=== PATIENT | male | born 1970 | race Caucasian/White ===

== ENCOUNTER 2019-02-28 12:04 | Inpatient (IN) ==
--- NOTE | 2019-02-25 09:02 | Anesthesiology Consultation ---
Date of Service February 25, 2019 Assessment & Plan (1) Encounter for pre-operative examination: Chart Review Chart Review: Acceptable Risk for Surgery and Patient NOT seen in Pre Admission Testing History Surgery Operation Date: 02/28/19 13:30 Proposed Procedures p Laparoscopic Cholecystectomy, Possible Open or Cholangiogram - Devyn Scott MD Height/Weight Height: 5 ft 10 in Weight: 113.398 kg Allergies Allergy/AdvReac Type Severity Reaction Status Date / Time No Known Allergies Allergy Verified 02/25/19 08:35 Medications Home Medications Medication Instructions Recorded Confirmed Last Taken famotidine 20 mg PO QAM 02/25/19 02/25/19 02/25/19 levothyroxine 137 mcg PO QAM 02/25/19 02/25/19 02/25/19 Past Medical History Medical History GI problem upset stomach/bloating- ? IBS Hypothyroidism Obesity Past Family History Family History Other Family history of prostate cancer in father Past Surgical History Surgical History History of wisdom tooth extraction Social History Smoking Status: Never smoker Do You Dip or Chew Tobacco: Yes (1 CAN PER DAY / ADVISED NPO) Hx Alcohol Use: Yes Alcohol type: beer Alcohol Intake Frequency Comment: 6 A WEEK Hx Substance Use: No substance use type: does not use Testing Laboratory Results 02/24/19 WBC 9.81 H/H 14.7/46.8 PLATELETS 401 SODIUM 140 POTASSIUM 4.6 CHLORIDE 103 CO2 27 BUN 15 CREATININE 1.2 GLUCOSE 83 Electrocardiogram Date: 02/24/19 SR with first degree AVB at 82bpm.
[~2019-02-28 12:04] MED LIST: CLINDAMYCIN 600 MG/54 ML BAG IV SCH; LR 15ML/HR IV SCH
[2019-02-28] MEDS ORDERED: MIDAZOLAM HCL 1 MG/ML 2ML VIAL ONE (12:32)
[2019-02-28] MEDS ORDERED: fentaNYL citrate 100 MCG/2 ML VIAL ONE ×2 (12:32→14:35)
[2019-02-28] MEDS ORDERED: CLINDAMYCIN 600 MG in DEXTROSE 5% 50 ML IV ONE (13:07)
--- NOTE | 2019-02-28 13:07 | History & Physical Bridge Note ---
Date of Service February 28, 2019 History & Physical Bridge Note I have examined the patient, reviewed the History & Physical and in the interval since the performance of the History & Physical I have noted the following changes of clinical significance: no changes noted
[2019-02-28] MEDS ORDERED: ATROPINE SULFATE 0.1 MG/ML 10ML SYR IV PRN (13:13)
[2019-02-28] MEDS ORDERED: fentaNYL citrate 100 MCG/2 ML VIAL IV PRN (13:13)
[2019-02-28] MEDS ORDERED: ePHEDrine sulfate 50 MG/ML AMP IV PRN (13:13)
[2019-02-28] MEDS ORDERED: ONDANSETRON INJ 2 MG/ML 2 ML VIAL IV PRN (13:13)
[2019-02-28] MEDS ORDERED: BACITRACIN OINT 15 GM TUBE ONE (13:18)
[2019-02-28] MEDS ORDERED: BUPIVACAINE 0.5 % 5 MG/1 ML MPF 30ML VIAL ONE (13:19)
[2019-02-28] MEDS ORDERED: LIDOCAINE HCL 1% 20 ML VIAL ONE (13:19)
[2019-02-28] MEDS ORDERED: ONDANSETRON INJ 2 MG/ML 2 ML VIAL ONE (14:03)
[2019-02-28] MEDS ORDERED: LIDOCAINE HCL 2% 2 ML VIAL/AMP(20MG/ML) INFIL ONE (14:03)
[2019-02-28] MEDS ORDERED: KETOROLAC 30 MG/ML VIAL ONE (14:03)
[2019-02-28] MEDS ORDERED: NEOSTIGMINE METHYLSULFATE 5 MG/5 ML SYR ONE (14:03)
[2019-02-28] MEDS ORDERED: PROPOFOL IV EMULSION 10 MG/ML 20 ML VIAL IV ONE (14:03)
[2019-02-28] MEDS ORDERED: DEXAMETHASONE SOD INJ 4 MG/ML VIAL ONE (14:03)
[2019-02-28] MEDS ORDERED: ROCURONIUM BROMIDE 10 MG/ML 5 ML VIAL ONE ×3 (14:03→15:15)
[2019-02-28] MEDS ORDERED: LARYING-O-JET KIT (LTA) ONE (14:03)
[2019-02-28] MEDS ORDERED: GLYCOPYRROLATE 0.2 MG/ML VIAL ONE (14:03)
[2019-02-28] MEDS ORDERED: CIPROFLOXACIN 400 MG/200 ML BAG IV STA (15:03)
[2019-02-28] MEDS ORDERED: metroNIDAZOLE 500 MG/100 ML BAG IV STA (15:04)
[2019-02-28] MEDS ORDERED: CIPRO 0.3%/DEXAMETHASONE 0.1% OTIC SUSP 7.5ML ONE (15:16)
--- NOTE | 2019-02-28 16:01 | Post Operative Brief Note ---
Immediate Post Op Note v1 Date of Surgery February 28, 2019 Pre & Post Diagnosis Operation Date: 02/28/19 13:30 Pre-Op Diagnosis: Acute Cholecystitis Post-Op Diagnosis: Acute Cholecystitis, gangrene gallbladder with abscess I identified the patient and participated in the time-out.: Yes Procedure Operation Date: 02/28/19 13:30 Actual Procedures p Laparoscopic Subtotal Cholecystectomy(Not Applicable) - Devyn Scott MD Surgeon Devyn Scott MD Church Supervisor JEFFREY Mccray Estimated Blood Loss 50 Findings Consistent with Post-Op Diagnosis gangrene gallbladder with abscess and gallstones Fluids 1200ml Specimens gallbladder Drains Chan-Rodriguez Drain Anesthesia Type General Complications none Disposition Accompanied Patient To Recovery: Yes Disposition: Recovery Room Overlapping Procedure I was immediately available: during the entire case.
[2019-02-28] MEDS ORDERED: HYDROmorphone INJ 0.5 MG/0.5 ML SYR IV PRN (16:48)
[2019-02-28] MEDS ORDERED: OXYCODONE/ACETAMINOPHEN 5mg/325mg TAB PO PRN (16:48)
--- NOTE | 2019-02-28 17:24 | Operative Report ---
DATE OF OPERATION: 02/28/2019 PREOPERATIVE DIAGNOSES: Acute cholecystitis, cholelithiasis. POSTOPERATIVE DIAGNOSES: Acute cholecystitis, gangrenous gallbladder with abscess and cholelithiasis. OPERATION: Laparoscopic subtotal cholecystectomy. SURGEON: Devyn Scott MD. ANESTHESIA: General. TILTING SAW OPERATOR: JEFFREY Mccray. IV FLUIDS: 1200 mL. ESTIMATED BLOOD LOSS: About 50 mL. FINDINGS: Significant inflammation on the gangrenous gallbladder with abscess, with gallstone. COMPLICATIONS: None. INDICATIONS FOR THE PROCEDURE: This is a 48-year-old gentleman who required to do the laparoscopic cholecystectomy, possible open, possible cholangiogram for his acute cholecystitis, cholelithiasis. I did talk to the patient about the benefit and risk, alternate procedure. I indicated the risks may include but not limited such as bleeding, infection, injury to common bile duct, bile leak, may need ERCP. The patient understands and he signed informed consent and I answered all questions. DETAILS OF PROCEDURE: We brought the patient to the OR, put the patient in the supine position. The patient received SCD on bilateral legs to prevent DVT. Also, patient received 3 grams Ancef IV for prophylactic antibiotic. The patient received general anesthesia without difficulties. Abdomen was appropriately draped in routine sterile fashion. After time out, I injected the local anesthesia by using 1% lidocaine mixed with 0.5% Marcaine just above umbilicus. Then I made a small incision just above umbilicus, opened fascia and opened peritoneum under direct vision, put a Liborio trocar in, connected to CO2 to create pneumoperitoneum. Flow rate was 6 liter per minute. Pressure not more than 14 mmHg. Once we got a nice pneumoperitoneum, we put a camera in, looked around the abdomen, shows normal finding on the liver. However, the gallbladder showed significant inflammation gangrenous gallbladder. Then, we put another two 5 mm trocar on the right upper quadrant, one 12 trocar on the epigastric area. Once all trocars were in, we mobilized the gallbladder, because of the gallbladder had significant inflammation likely with gangrene, we used needle to decompress the gallbladder; however, there was some pus coming out and patient had abscess on the gallbladder. We did send wound culture. At this moment, I ordered 400 mg Cipro IV and 500 mg of Flagyl IV for another dose of antibiotic, so based on the significant inflammation it was difficult to found the cystic duct. At this moment, we decided to do the subtotal cholecystectomy. We used the top-down technique and take down gallbladder near the cystic duct and then we used the Endo-SHASTA staple 45 mm transection near the cystic duct and also we removed at least 5 large stones, each was 1.5 cm stone inside the gallbladder. Once we removed the gallstone and we cleared the cystic duct near the pouch of the gallbladder again, we used Endo-SHASTA stapler for transection on the gallbladder near the cystic duct. Rechecked, no active bleeding, no leak and then we removed gallbladder and gallstones through the catch bag. Then we reinserted Lbiorio trocar and connected the CO2 to create pneumoperitoneum, again looked around the liver bed. No active bleeding, no bile leak at this moment. Then, we put one 10 mm BENJAMIN drainage in through the 5 mm trocar. We used a 2-0 Vicryl to fix the BENJAMIN on the skin. Then we removed all trocar under direct vision. No active bleeding from the trocar sites. Pneumoperitoneum was released. I closed the umbilical incision, fascial layer by using 0 Vicryl [id number] x2, closed subcutaneous layer by using 2-0 Vicryl interrupted, closed skin by using 4-0 Vicryl continuous running, closed another epigastric 12 trocar site fascial layer using 0 Vicryl [id number] x2 subcutaneous layer by using 2-0 Vicryl interrupted, closed skin by using 4-0 Vicryl interrupted, closed another two 5 mm trocar site skin only by using 4-0 Vicryl. Then we put the dressing on. The patient tolerated the procedure well. All instrument, needle and sponge count were correct x2 at the end of the case. The patient transferred to recovery room in stable condition. After the procedure, I did talk to the patient's mom about the OR finding and procedure we did. I recommended to admit the patient in the hospital and control the infection. The patient's mom agree and the specimen sent to pathology. I attest to the content of the Intraoperative Record and any orders documented therein. Any exception s are noted below.
[2019-02-28] MEDS: LACTATED RINGER'S 1,000 ML IV SCH (17:57)
--- NOTE | 2019-02-28 17:59 | Anesthesiology Progress Note ---
Date of Service February 28, 2019 Anesthesia Post Procedure Vital Signs Vital Signs: Temp Pulse Pulse Resp BP BP Pulse Ox 02/28/19 17:40 36.3 C L 65 14 113/74 93 02/28/19 16:55 36.6 C 84 16 130/74 97 02/28/19 16:45 65 16 131/79 97 02/28/19 16:35 75 16 105/75 94 02/28/19 16:25 76 16 137/75 94 02/28/19 16:15 36.9 C 76 16 139/97 94 02/28/19 12:38 36.6 C 77 18 121/86 97 Transfer of Care Handoff Completed per policy Notes Mental Status: alert / awake / arousable and participated in evaluation Patient Amnestic to Procedure: Yes Nausea / Vomiting: adequately controlled Pain: adequately controlled Airway Patency, RR, SpO2: stable & adequate BP & HR: stable & adequate Hydration State: stable & adequate Anesthetic Complications: no major complications apparent and Pt Satisfied with anesthetic care
[2019-02-28] MEDS: metroNIDAZOLE 500 MG/100 ML BAG IV SCH (22:10)
[2019-03-01] MEDS: CIPROFLOXACIN 400 MG/200 ML BAG IV SCH ×2 (03:33→16:29)
[2019-03-01 05:44] LABS: Basophils # (auto) 0.01 K/uL (0-0.2); Basophils % (auto) 0.1 %; Eosinophils # (auto) 0.01 K/uL (0-0.5); Eosinophils % (auto) 0.1 %; Hematocrit (blood only) 36.8 % (42-52); Hemoglobin 12.2 g/dL (14.0-18.0); Immature Granulocytes # (auto) 0.05 K/uL (0.00-0.02); Immature Granulocytes % (auto) 0.3 %; Lymphocytes # (auto) 1.36 K/uL (1.2-3.4); Lymphocytes % (auto) 9.5 %; Mean Corpuscular Hemoglobin 28.8 pg (25-34); Mean Corpuscular Hgb Conc 33.2 g/dL (32-36); Mean Corpuscular Volume 86.8 fL (80-100); Mean Platelet Volume 9.9 fL (7.4-10.4); Monocytes % (auto) 4.2 %; Neutrophils # (auto) 12.29 K/uL (1.4-6.5); Neutrophils % (auto) 85.8 %; Platelet Count 347 K/uL (130-400); RDW Coefficient of Variation 13.6 % (11.5-14.5); RDW Standard Deviation 43.3 fL (36.4-46.3); Red Blood Count 4.24 M/uL (4.7-6.1); White Blood Count 14.32 K/uL (4.8-10.8)
[2019-03-01 06:14] LABS: Albumin Level 2.9 gm/dl (3.4-5.0); BUN Creatinine Ratio 17.4 (10-20); Calcium 8.8 mg/dl (8.5-10.1); Creatinine Clr Calc Pharmacy 97.4 ml/min; Est GFR (African American) 86.4; Est GFR (Non-African American) 74.6
[2019-03-01] MEDS: LACTATED RINGER'S 1,000 ML IV SCH ×2 (06:16→18:29)
[2019-03-01] MEDS: metroNIDAZOLE 500 MG/100 ML BAG IV SCH ×3 (06:16→22:38)
[2019-03-01 06:19] LABS: Albumin Globulin Ratio 0.6 (0.9-2); Bilirubin,Total 0.5 mg/dl (0.2-1); Globulin 4.7 gm/dl (2.5-4.0); Total Protein 7.6 gm/dl (6.4-8.2)
[2019-03-01] MEDS: LEVOTHYROXINE SODIUM 137 MCG TABLET PO SCH (06:21)
[2019-03-01] MEDS: FAMOTIDINE 20 MG TAB PO SCH (09:30)
--- NOTE | 2019-03-01 10:00 | Surgery Progress Note ---
Date of Service March 01, 2019 Assessment & Plan (1) Cholelithiasis: POD # 1 s/p laparoscopic subtotal cholecystectomy -vitals stable, afebrile - leukocytosis of 14K (likely postoperative) - minimal post op pain - no n/v, tolerated clear liquids - coby drain with bloody serosanguineous output, no bile, 70 cc since placement Plan: Continue pain management as needed advance to regular diet continue coby drain continue ambulation possible discharge this evening or tomorrow morning repeat cbc in morning Dr. Scott has seen patient, agrees with above Subjective feeling good minimal pain no n/v, tolerated clear liquids urinating without difficulty ambulating hallway no cp/sob/dizziness Physical Exam Constitutional: WD/WN, vitals as above no acute distress Gastrointestinal (Abdomen): Inspection/Auscultation: abdomen normal to inspection and + abdominal surgical drain present (bloody serosanguineous output); abdomen not distended Percussion/Palpation: abdomen soft; abdomen nontender, no guarding and abdomen not rigid Skin: no rashes, warm and dry Psychiatric: A+Ox3, euthymic affect Results & Data Vital Signs (Past 12 Hours) Vital Signs Temp Pulse Pulse Resp BP Pulse Ox 03/01/19 07:39 36.4 C L 18 96/61 L 91 03/01/19 03:25 36.7 C 60 18 97/58 L 92 02/28/19 23:25 36.4 C L 65 18 143/77 H 94 Laboratory Results 03/01/19 03/01/19 Range/Units 04:41 04:41 WBC 14.32 H (4.8-10.8) K/uL RBC 4.24 L (4.7-6.1) M/uL Hgb 12.2 L (14.0-18.0) g/dL Hct 36.8 L (42-52) % MCV 86.8 (80-100) fL MCH 28.8 (25-34) pg MCHC 33.2 (32-36) g/dL RDW Std Deviation 43.3 (36.4-46.3) fL RDW Coeff of Verna 13.6 (11.5-14.5) % Plt Count 347 (130-400) K/uL MPV 9.9 (7.4-10.4) fL Immature Gran % (Auto) 0.3 % Neut % (Auto) 85.8 % Lymph % (Auto) 9.5 % [place] % (Auto) 4.2 % Eos % (Auto) 0.1 % Baso % (Auto) 0.1 % Immature Gran # (Auto) 0.05 H (0.00-0.02) K/uL Neut # (Auto) 12.29 H (1.4-6.5) K/uL Lymph # (Auto) 1.36 (1.2-3.4) K/uL [place] # (Auto) 0.60 H (0.11-0.59) K/uL Eos # (Auto) 0.01 (0-0.5) K/uL Baso # (Auto) 0.01 (0-0.2) K/uL Sodium 134 L (136-145) mmol/L Potassium 4.0 (3.5-5.1) mmol/L Chloride 102 (98-107) mmol/L Carbon Dioxide 23 (21-32) mmol/L Anion Gap 9.0 (3-11) BUN 20 H (7-18) mg/dl Creatinine 1.14 (0.6-1.4) mg/dl Est Cr Clr Drug Dosing 97.4 ml/min Est GFR ( Amer) 86.4 Est GFR (Non-Af Amer) 74.6 BUN/Creatinine Ratio 17.4 (10-20) Glucose 130 H (70-99) mg/dl Calcium 8.8 (8.5-10.1) mg/dl Total Bilirubin 0.5 (0.2-1) mg/dl AST 15 (15-37) U/L ALT 20 (12-78) U/L Alkaline Phosphatase 59 (45-117) U/L Total Protein 7.6 (6.4-8.2) gm/dl Albumin 2.9 L (3.4-5.0) gm/dl Globulin 4.7 H (2.5-4.0) gm/dl Albumin/Globulin Ratio 0.6 L (0.9-2)
--- NOTE | 2019-03-01 10:03 | Anesthesiology Progress Note ---
Date of Service March 01, 2019 Anesthesia Post Procedure Vital Signs Vital Signs: Temp Pulse Pulse Resp BP BP Pulse Ox 03/01/19 07:39 36.4 C L 18 96/61 L 91 03/01/19 03:25 36.7 C 60 18 97/58 L 92 02/28/19 23:25 36.4 C L 65 18 143/77 H 94 02/28/19 20:10 36.3 C L 73 14 121/77 94 02/28/19 19:09 36.4 C L 74 14 120/80 93 02/28/19 18:10 36.6 C 71 16 123/76 92 02/28/19 17:40 36.3 C L 65 14 113/74 93 02/28/19 16:55 36.6 C 84 16 130/74 97 02/28/19 16:45 65 16 131/79 97 02/28/19 16:35 75 16 105/75 94 02/28/19 16:25 76 16 137/75 94 02/28/19 16:15 36.9 C 76 16 139/97 94 02/28/19 12:38 36.6 C 77 18 121/86 97 Notes Mental Status: alert / awake / arousable and participated in evaluation Nausea / Vomiting: adequately controlled Pain: adequately controlled Airway Patency, RR, SpO2: stable & adequate BP & HR: stable & adequate Hydration State: stable & adequate Anesthetic Complications: no major complications apparent
[2019-03-02] MEDS: CIPROFLOXACIN 400 MG/200 ML BAG IV SCH (03:14)
[2019-03-02 05:13] LABS: Basophils # (auto) 0.03 K/uL (0-0.2); Basophils % (auto) 0.2 %; Eosinophils # (auto) 0.16 K/uL (0-0.5); Eosinophils % (auto) 1.2 %; Hematocrit (blood only) 38.9 % (42-52); Hemoglobin 12.7 g/dL (14.0-18.0); Immature Granulocytes # (auto) 0.03 K/uL (0.00-0.02); Immature Granulocytes % (auto) 0.2 %; Lymphocytes % (auto) 20.8 %; Mean Corpuscular Hemoglobin 28.7 pg (25-34); Mean Corpuscular Hgb Conc 32.6 g/dL (32-36); Mean Platelet Volume 9.6 fL (7.4-10.4); Monocytes # (auto) 1.15 K/uL (0.11-0.59); Monocytes % (auto) 8.6 %; Neutrophils # (auto) 9.28 K/uL (1.4-6.5); Platelet Count 332 K/uL (130-400); RDW Coefficient of Variation 13.9 % (11.5-14.5); Red Blood Count 4.42 M/uL (4.7-6.1); White Blood Count 13.45 K/uL (4.8-10.8)
[2019-03-02] MEDS: metroNIDAZOLE 500 MG/100 ML BAG IV SCH (05:37)
[2019-03-02] MEDS: LEVOTHYROXINE SODIUM 137 MCG TABLET PO SCH (05:48)
[2019-03-02] MEDS: FAMOTIDINE 20 MG TAB PO SCH (07:39)
--- NOTE | 2019-03-02 09:35 | Surgery Progress Note ---
Date of Service March 02, 2019 Assessment & Plan (1) Cholelithiasis: POD # 2 s/p laparoscopic subtotal cholecystectomy -vitals stable, afebrile - leukocytosis of 13k (likely postoperative) - no post op pain - no n/v, tolerated regular diet - coby drain with serosanguineous output, no bile Plan: Discharge home Discharge instructions reviewed coby drain teaching, going home with coby drain Rx for Percocet prn pain, Cipro/flagyl for 5 days f/u surgical office in 1 week f/u pcp office in [address] Scott who agrees with above. Subjective feeling good tolerated regular diet, no n/v no abdominal pain walking hallways ready to go home Physical Exam Constitutional: WD/WN, vitals as above no acute distress Gastrointestinal (Abdomen): Inspection/Auscultation: abdomen normal to inspection and + abdominal surgical drain present (serosanguineous ); abdomen not distended Percussion/Palpation: abdomen soft; abdomen nontender, no guarding and abdomen not rigid Skin: no rashes, warm and dry + incision (covered with dressings, spotting present but dry) Psychiatric: A+Ox3, euthymic affect Results & Data Vital Signs (Past 12 Hours) Vital Signs Temp Pulse Pulse Pulse Resp BP BP 03/02/19 09:23 36.7 C 60 73 77 16 121/77 120/76 03/02/19 07:36 36.7 C 77 16 120/76 03/01/19 22:59 36.7 C 65 16 126/76 Pulse Ox 03/02/19 09:23 95 03/02/19 07:36 95 03/01/19 22:59 94 Laboratory Results 03/02/19 Range/Units 04:50 WBC 13.45 H (4.8-10.8) K/uL RBC 4.42 L (4.7-6.1) M/uL Hgb 12.7 L (14.0-18.0) g/dL Hct 38.9 L (42-52) % MCV 88.0 (80-100) fL MCH 28.7 (25-34) pg MCHC 32.6 (32-36) g/dL RDW Std Deviation 45.0 (36.4-46.3) fL RDW Coeff of Verna 13.9 (11.5-14.5) % Plt Count 332 (130-400) K/uL MPV 9.6 (7.4-10.4) fL Immature Gran % (Auto) 0.2 % Neut % (Auto) 69.0 % Lymph % (Auto) 20.8 % [place] % (Auto) 8.6 % Eos % (Auto) 1.2 % Baso % (Auto) 0.2 % Immature Gran # (Auto) 0.03 H (0.00-0.02) K/uL Neut # (Auto) 9.28 H (1.4-6.5) K/uL Lymph # (Auto) 2.80 (1.2-3.4) K/uL [place] # (Auto) 1.15 H (0.11-0.59) K/uL Eos # (Auto) 0.16 (0-0.5) K/uL Baso # (Auto) 0.03 (0-0.2) K/uL
--- NOTE | 2019-03-04 14:31 | Discharge Summary ---
ADMITTING DIAGNOSIS: Acute cholecystitis with cholelithiasis. DISCHARGE DIAGNOSIS: Gallbladder cancer. OPERATION: Laparoscopic subtotal cholecystectomy. SURGEON: Devyn Scott MD DETAILS OF DISCHARGE SUMMARY: This is a 48-year-old gentleman who was admitted to the hospital for acute cholecystitis, right upper quadrant pain with gallstone and we took the patient to the OR. We did a laparoscopic subtotal cholecystectomy due to the significant inflammation with abscess. The gallbladder was significantly thickened and we put one BENJAMIN drainage. The patient tolerated the procedure well and after procedure the patient transferred to recovery room in stable condition and later on transferred to regular floor. The patient is doing fine. He tolerated the diet. No nausea, no vomiting, no temperature and no significant abdominal pain. PHYSICAL EXAMINATION: VITAL SIGNS: Temperature is 36.7, respiratory rate 16, blood pressure is 121/77, heart rate 77, O2 saturation 95% on room air. GENERAL: The patient is alert, awake, oriented x3. HEENT: Within normal limitation. NEUROLOGIC: Intact. NECK: No JVD. CHEST: Bilateral lung sounds clear. HEART: Normal S1, S2. No murmurs. ABDOMEN: Soft, nondistended and there is one BENJAMIN drainage minimal, about 30-50 cc per daily and all incisions intact. No redness, no drainage, no significant abdominal pain. Bowel sounds positive. EXTREMITIES: No edema. PLAN: On 03/02/2019 the patient wanted to go home. We discharged the patient home. Also, we gave the patient postop care instruction; however, on next day pathology called me report the patient had gallbladder cancer. I called the patient's right away to advise the patient to come back to my office next week, Thursday, about 4 days away. The patient understands. We gave the patient instructions how to take care of BENJAMIN drainage. The patient understands.
--- NOTE | 2019-03-04 14:45 | Discharge Summary ---
Date of Service March 04, 2019 Admission HPI Per Admitting Provider Donal presented to [facility] for outpatient elective cholecystectomy by Dr. Can for chronic right upper quadrant abdominal pain and gallstones. Principal Diagnosis Right upper quadrant abdominal pain Gallstones with gallbladder wall thickening Discharge Data Allergies Allergy/AdvReac Type Severity Reaction Status Date / Time No Known Allergies Allergy Verified 02/28/19 12:36 Procedures Performed Operation Date: 02/28/19 13:30 Actual Procedures p Laparoscopic Subtotal Cholecystectomy(Not Applicable) - Devyn Scott MD Hospital Course (1) Cholelithiasis: Patient was taken to the operating room for laparoscopic cholecystectomy by Dr. Scott. Patient was found to have significant edema of the gallbladder intraoperatively and originally look like he had severe case of acute cholecystitis with purulence in the gallbladder. A culture was taken of the purulent drainage. Due to the amount of gallbladder wall thickening subtotal cholecystectomy was performed. A surgical drain was placed to monitor for any postop bile leak. Therefore patient was kept in the hospital overnight. Postop day #1 vital signs stable afebrile mild leukocytosis of 14,000 likely postoperative stress. Tolerating clear liquid diets and pain very minimal not requiring any pain medication. Is ambulating hallway and doing very well. Patient had an outpatient CT scan of the liver day prior to his procedure which was concerning for gallbladder malignancy and extension into the liver. Patient was kept overnight for more monitoring. Diet was advanced to regular diet. POD # 2 again vital signs stable and afebrile. Will rating regular diet, no pain no nausea no vomiting no chest pain shortness of breath BENJAMIN drain with serosanguineous output. Patient was feeling well and was discharged home in stable condition on postop day #2. Patient was informed of CT scan findings and advised to follow-up with his PCP in about 1 week and follow-up in surgical office due to going home with surgical drain. Patient was educated on drain management. Total Time Total Time Spent Total Time Spent (In Minutes): 30 Total Time Includes: Examination of the Patient, Discharge Planning and Medication Reconciliation Discharge Plan Discharge Items Patient Disposition: Home - Self-Care Reason For Visit: Acute Cholecystitis, Calculus of Gallbladder with Discharge Diagnosis: Same Severe inflammation and thickening of gallbladder Activity: Per Instructions section Non-emergency contact: Surgeon Call non-emergency contact if: your symptoms worsen, your pain is not controlled, your pain is worsening, your pain is concerning for you, you have a fever, your temperature is above 101, your wound has increased redness, your wound has increased drainage and your wound pain has increased Follow-up/Referrals: Sean Colbert MD [Primary Care Provider] - Diet: Low Fat Addtl Attending Provider Instructions: Surgical discharge instructions: No heavy lifting over 20 pounds for 4 weeks No strenuous activity until cleared by surgeon No submerging incisions underwater for 2 weeks (no bathing, swimming, or hot tubs) No driving while taking narcotic pain medication or until you are pain free You may shower 3 days after your surgery date. Sponge bath and wash hair in meantime. Leave dressings on for 3 days and then remove. Sponge bath around drain. Record drain output amount and color. Keep record and bring with you to your follow-up appointment. You will be given prescription for narcotic pain medication (Percoet) as needed for moderate to severe pain. Take as directed. This medication may cause drowsiness and constipation. May take extra strength Tylenol or Ibuprofen as needed for mild pain -650 mg of Tylenol every 6 hours as needed - 600 mg of Ibuprofen every 6 hours as needed Recommend taking stool softener while taking narcotic pain medication (i.e Colace) Take oral antibiotics as prescribed for entire course (5 days) Follow-up in surgical office in 1 week, please call office at [phone] to make an appointment with Dr. Scott. Should also follow-up with your PCP in 1 week, please call their office to make an appointment. Pending Studies at Discharge: Yes (gallbladder pathology, will be reviewed at follow up visit) Stand-Alone Forms: [facility], Opioid Pain Management, Smoking Cessation Medications and DC Order Prescriptions: New oxycodone-acetaminophen [Percocet] 5-325 mg tablet 1 tab PO Q6H PRN (Reason: pain) Qty: 5 RF: 0 ciprofloxacin HCl [Cipro] 500 mg tablet 500 mg PO BID Qty: 10 RF: 0 metronidazole [Flagyl] 500 mg tablet 500 mg PO TID Qty: 15 RF: 0 Continued famotidine 20 mg Tablet 20 mg PO QAM RF: 0 levothyroxine 137 mcg Capsule 137 mcg PO QAM RF: 0 Discharge Orders: Discharge Order (Routine); Ordered 03/02/19 Ordered By: Sandra Apodaca Admission Data Admit Date/Time: 02/28/19 16:14 Attending Provider: Devyn Scott Admit Provider: Devyn Scott Primary Care Provider: Sean Colbert Other Interventions: Discharge Summary Assessment (RN) Last Done: 03/02/19 09:23 DC Date/Time DO NOT enter until pt leaves facility: 03/02/19 11:04
== END 2019-03-02 11:04 | disposition home or self-care (01) | DRG 418 ==
LOC: ASU 12:04 → 3W 16:14